=== PATIENT | male | born 1965 | race Caucasian/White ===

== ENCOUNTER 2018-01-13 12:30 | Emergency (ER) | payer BC ==
[~2018-01-13] VITALS: Ht 182.9 cm; Wt 80.7 kg
[2018-01-13 13:18] VITALS: Ht 182.9 cm; Wt 80.7 kg
[2018-01-13 15:09] LABS: PLATELET COUNT 223 x10^3mcL (130-400)
[2018-01-13 15:11] LABS: CALCIUM 9.2 mg/dL (8.5-10.1); CARBON DIOXIDE 30.3 mmol/L (21-32); CHLORIDE SERUM 104 mmol/L (98-107); CREATININE SERUM 0.8 mg/dL (0.7-1.3); GFR1 > 60 mL/min; GLUCOSE SERUM 111 mg/dL (74-106); POTASSIUM SERUM 4.3 mmol/L (3.5-5.1); SODIUM SERUM 140 mmol/L (136-145)
[2018-01-13 15:17] LABS: ALBUMIN 4.3 g/dL (3.4-5.0); ALKALINE PHOSPHATASE 62 U/L (46-116); ALT/SGPT 49 U/L (16-63); AST/SGOT 23 U/L (15-37); BILIRUBIN TOTAL 0.9 mg/dL (0.20-1.00); CHOLESTEROL 191 mg/dL (<200); TOTAL PROTEIN, SERUM 7.6 g/dL (6.4-8.2)
[2018-01-13 15:28] LABS: BASOPHIL % 0 % (0-2); RED CELL DISTRIBUTION WIDTH 15.2 % (11.5-14.5)
[2018-01-13 18:35] VITALS: BP 134/64
== END 2018-01-13 18:36 | disposition home or self-care (01) ==
LOC: ED 12:30
PROVIDERS: Specialist
DX: E86.0 Dehydration (principal); R19.7 Diarrhea, unspecified; R51 Headache; R11.10 Vomiting, unspecified
CPT/HCPCS: G0480; J1885; J2060; J2270; J2405; J7030; Q0092